=== PATIENT | female | born 1945 | race Asian ===

== ENCOUNTER 2017-09-25 10:57 | Day surgery (SDC) | payer MEDICARE, OTHER ==
[~2017-09-25] VITALS: Ht 162.6 cm; Wt 59.7 kg
[2017-09-25 11:48] VITALS: Ht 162.6 cm; Wt 59.7 kg
[2017-09-25] MEDS ORDERED: PANT40TA4 PO (12:28)
[2017-09-25] MEDS ORDERED: GUAI200T3 PO (12:28)
[2017-09-25] MEDS ORDERED: SEVE800T13 PO (12:28)
[2017-09-25] MEDS ORDERED: LANT3I SC (12:28)
[2017-09-25] MEDS ORDERED: REGULAR INSULIN SC (12:28)
[2017-09-25] MEDS ORDERED: MONT10TA24 PO (12:28)
[2017-09-25] MEDS ORDERED: BUDE6HFA INHALATION (12:28)
[2017-09-25] MEDS ORDERED: SPIRIVA INH (12:28)
[2017-09-25] MEDS ORDERED: ALBUTEROL INH (12:28)
[2017-09-25 12:53] VITALS: BP 123/61; PULSE 72; RESP 23
[2017-09-25] MEDS ORDERED: LIDOCAINE 2% (SDV) 5 ML INJ ONE (13:05)
[2017-09-25] MEDS ORDERED: PROPOFOL 20 ML ONE (13:05)
[2017-09-25] MEDS ORDERED: MIDAZOLAM 1 MG/ML 2 ML INJ ONE (13:05)
--- NOTE | 2017-09-25 13:21 | OPPN ---
Date/Time of Note Date/Time of Note DATE: 09/25/17 TIME: 13:19 Operative Report Preoperative Diagnosis Recent history of ulcer disease with GI bleed history of melena Postoperative Diagnosis Rule out Jocelyn esophagitis Ulcer has healed Duodenitis Small hiatus Operation/Procedure Performed EGD biopsy of the stomach and biopsy of the esophagus Surgeon see signature line oceanographer assistant None Second assist: THAD CORDOBA MD Anesthesia: MAC Estimated blood loss: none Transfusion Required none Specimen Esophageal biopsy gastric biopsy Grafts/Implants none Complications none NATALIA STEPHENS MD Sep 25, 2017 13:21
[2017-09-25 13:50] VITALS: BP 100/46; RESP 20
--- NOTE | 2017-09-26 13:48 | GILP ---
DATE OF PROCEDURE: PREOPERATIVE DIAGNOSIS: History of recurrent GI bleed. The patient had a postbulbar ulcer had alfredo tment for H. pylori now because of continued symptoms and chronic other diseases including end-stage renal disease. She was brought for upper endoscopy. PROCEDURE DONE: Esophagogastroduodenoscopy and biopsy of the stomach and esophagus. ANESTHESIOLOGIST: Dr. Jacome. POSTOPERATIVE DIAGNOSIS: Whitish plaques sheets in the esophagus easily removable, mild esophagitis , Schatzki ring, Jocelyn esophagitis suspected. Hiatus hernia very small. In the stomach, there was mild gastritis. Duodenum: There is duodenitis. 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 Th e previous ulcer is healed. It looks like there is scar. I could not see any ulcer underneath even after rotation it was difficult to see, postbulbar area. DESCRIPTION OF PROCEDURE: The patient was put in left lateral decubitus after obtaining informed co nsent, was sedated, monitored by the anesthesiologist. Very carefully advanced an Olympus video upp er endoscope in the esophagus, stomach and duodenum. Esophagus showed whitish sheets of Jocelny-lik e picture. Upon moving them mild esophagitis underneath and then this was biopsied Schatzki ring wi th a small hiatus hernia noted. Entering the stomach, including retroflexion and antegrade exam, mi ld gastritis. Random biopsy done to rule out H. pylori. Duodenum easily entered, but bulb, no ulce r. There is duodenitis, first and second part, difficult to examine the first part due to stricture , previous ulcer has healed it looks like, but I did not see the ulcer as such very well, but due to narrowing it was difficult to examine this area. Photography done. Then the scope was withdrawn. Patient had no complication. Plan will be to continue Protonix, continue to monitor. If the occul t bleeding continues will consider capsule enteroscopy or even consider colonoscopy as outpatient. After holidays, the patient will come back and see me. Dictated By: NATALIA FAUST/MESSI Conf#: [id number] DID#: [id number] CC: NATALIA STEPHENS M.D.;*EndCC*
== END 2017-09-25 14:19 | disposition home or self-care (01) ==
LOC: GIL 10:57
PROVIDERS: ATTEND Internal Medicine
DX: K20.9 Esophagitis, unspecified (principal); K29.70 Gastritis, unspecified, without bleeding; E11.9 Type 2 diabetes mellitus without complications; J45.909 Unspecified asthma, uncomplicated; I25.2 Old myocardial infarction; I12.0 Hypertensive chronic kidney disease with stage 5 chronic kidney disease or end stage renal disease; N18.6 End stage renal disease; Z99.2 Dependence on renal dialysis
CPT/HCPCS: 43239; 82962; 88305; 88312; 88313; J2250